=== PATIENT | male | born 1965 | race Caucasian/White ===

== ENCOUNTER 2022-11-26 09:03 | Outpatient (CLI) | payer OTHER, SELFPAY ==
--- NOTE | ~2022-11-26 | CT_ITS ---
CT of the Abdomen: Indication: Renal cell carcinoma Technique: 2.5 mm axial scans were obtained through the abdomen prior to and following intravenous a dministration of 100 cc of Omnipaque 350. Dose reduction technique was used on this scan by utilizing automated exposure control and iterative reconstruction technique. The dose-length product (DLP) was 1169.28 mGy-cm. Findings: Scans through the lung bases are unremarkable. The liver, spleen, pancreas, gallbladder, and adrenal are within normal limits. Suspected prior parti al resection of the superior pole the right kidney. There is a low-density nonenhancing lesion in the left kidney, probably a small cyst (axial image 76). No hydronephrosis. Probable 1 cm densely calcif ied splenic artery aneurysm (coronal image 65). No evidence of aortic aneurysm. No lymphadenopathy. Visualized bowel loops are unremarkable. No ascites. Impression: No evidence for active malignancy or metastatic disease. Probable postoperative change at the superior pole the right kidney. Correlate with clinical history. Nonenhancing probable cyst in the left kidney, or possibly postablative change, as detailed above. 1 cm densely calcified probable splenic artery aneurysm. Reviewed, dictated and finalized at [facility]. Impression: No evidence for active malignancy or metastatic disease. Probable postoperative change at the superior pole the right kidney. Correlate with clinical history. Nonenhancing probable cyst in the left kidney, or possibly postablative change, as detailed above. 1 cm densely calcified probable splenic artery aneurysm.
== END 2022-11-26 09:04 | disposition home or self-care (01) ==
PROVIDERS: PCP Internal Medicine Geriatric Medicine
DX: C64.9 Malignant neoplasm of unspecified kidney, except renal pelvis (principal); N28.1 Cyst of kidney, acquired
CPT/HCPCS: 74170; Q9967